=== PATIENT | female | born 1985 ===

== ENCOUNTER 2016-09-28 11:21 | Emergency (ER) | payer OTHER ==
[2016-09-28 13:04] VITALS: BP 124/74
[2016-09-28] MEDS ORDERED: Fluorescein Sodium TOPICAL* 1 MG TEST ONE (15:20)
[2016-09-28] MEDS ORDERED: BSS OPTH.SOL* BTL ONE (15:20)
[2016-09-28] MEDS ORDERED: Tetracaine 0.5% OPTH.SOL 15ML* BTL ONE (15:21)
--- NOTE | 2016-09-28 15:21 | UC ---
Eye Complaint HPI - HPI Summary HPI Summary: The patient comes in today for: 1. Burning in both eyes, the but left one is worse than the right, and redness of both eyes. Onset: Last night. Palliative/provocative: Not touching the eyes makes them better. Quality: Burning. Region: Both eyes. Severity: 5/10 Time: On and off. Present when blinking. Associated symptoms: Visual acuity: "OK." "Normal." Previous eye disease: Event: Last week, she fell asleep last week with contact in both eyes. She put in the contacts last night. She went out for dinner, and then when she got home, she couldn't take them out. She states that she did not drink any alcohol nor take any sleep medication. She states that she does not have any active sleep disorders. She states that her vision now is like what it is when she does not have her contacts in. She just wants to make sure that she does not have her contacts in at this time. She does not remember rubbing them out at night. * - History of Current Complaint Chief Complaint: UCEye Stated Complaint: EYE COMPLAINT CONTACT LENSE Time Seen by Provider: 09/28/16 15:10 Hx Obtained From: Patient Hx Last Menstrual Period: 4 WEEKS AGO ?: No - Allergies/Home Medications Allergies/Adverse Reactions: Allergies Allergy/AdvReac Type Severity Reaction Status Date / Time No Known Allergies Allergy Verified 09/28/16 12:53 Home Medications: Home Medications Phenylephrine-Aspirin [[place] Plus Sinus F 7.8-325 mg] 09/28/16 [History] PMH/Surg Hx/FS Hx/Imm Hx Previously Healthy: Yes Endocrine History Of: Denies: Diabetes, Thyroid Disease, Hyperthyroidism, Hypothyroidism, Dyslipidemia Cardiovascular History Of: Denies: Cardiac Disorders, Hypertension, Pacemaker/ICD, Myocardial Infarction , Congestive Heart Failure, Atrial Fibrillation, Deep Vein Thrombosis, Bleeding Disorders Respiratory History Of: Denies: COPD, Asthma, Bronchitis, Pneumonia, Pulmonary Embolism GI/ History Of: Denies: Gastroesophageal Reflux, Ulcer, Gastrointestinal Bleed, Gall Bladder Disease, Kidney Stones, Diverticulitis, Renal Disease, Urosepsis Neurological History Of: Denies: TIA, CVA, Dementia, Seizures, Migraine Psychological History Of: Denies: Anxiety, Depression, Bipolar Disorder, Schizophrenia, Post Traumatic Stress Disorder Cancer History Of: Denies: Lung Cancer, Colorectal Cancer, Breast Cancer, Prostate Cancer, Cervical Cancer Other History Of: Negative For: HIV, Hepatitis B, Hepatitis C, Anticoagulant Therapy - Surgical History Surgical History: Yes - Family History Known Family History: Positive: Hypertension Negative: Cardiac Disease, Diabetes - Social History Occupation: Student Lives: With Family Alcohol Use: Weekly Substance Use Type: None Smoking Status (MU): Never Smoked Tobacco Review of Systems Constitutional: Negative Skin: Negative Eyes: Eye Redness ENT: Sore Throat, Nasal Discharge - white and yellow with sinus pressure. Respiratory: Cough - [place] plus Cardiovascular: Negative Gastrointestinal: Negative Genitourinary: Negative All Other Systems Reviewed And Are Negative: Yes Physical Exam Triage Information Reviewed: Yes Appearance: Well-Appearing, No Pain Distress, Well-Nourished Vital Signs: Initial Vital Signs Temp 98.6 F 09/28/16 12:55 Pulse 58 09/28/16 12:55 Resp 16 09/28/16 12:55 BP 124/74 09/28/16 12:55 Pulse Ox 100 09/28/16 12:55 Vital Signs Reviewed: Yes Eyes: Positive: Conjunctiva Clear - On the right., Conjunctiva Inflamed - Minimal erythema on the left., Other: - No contacts in the upper or lower eye globe.. Negative: Discharge ENT: Positive: Hearing grossly normal. Negative: Pharyngeal erythema, Nasal congestion, Nasal drainage, TM bulging, TM dull, TM red, Tonsillar swelling, Tonsillar exudate Dental: Negative: Gross Decay/Caries @, Dental Fracture @ Neck: Positive: Supple, Nontender, No Lymphadenopathy. Negative: Nuchal Rigidity Respiratory: Positive: Lungs clear, No respiratory distress, No accessory muscle use. Negative: Crackles, Wheezing Cardiovascular: Positive: RRR, No Murmur Abdomen Description: Positive: No Organomegaly, Soft. Negative: Nontender - She has diffuse LLQ and RLQ tenderness with no rebound or percussion tenderness. , Distended, Guarding Musculoskeletal: Positive: Strength Intact, ROM Intact, No Edema Neurological: Positive: Alert, Muscle Tone Normal Psychological: Positive: Normal Response To Family, Age Appropriate Behavior, Consolable Skin: Negative: rashes, breakdown Eye Complaint Course/Dx - Course Course Of Treatment: Patient was told that I did not see any contact in her eyes. She was asked if she wanted treatment for a possible sinus infection ( she declined antibiotic treatment). She did not want her abdominal tenderness further investigated. - Differential Dx/Diagnosis Provider Diagnoses: Conjunctivitis, bilateral, non-suppurative. Discharge - Discharge Plan Condition: Stable Disposition: HOME Patient Education Materials: Conjunctivitis (ED) Referrals: No Primary Care Phys,NOPCP [Primary Care Provider] - If Needed (Please see your primary care provider as needed. If you don't have one, please contact the Physician Referral phone number. Until then, you can see us.) [facility] [Outside]
== END 2016-09-28 15:46 | disposition home or self-care (01) ==
LOC: UCEAST 11:21
DX: H10.9 Unspecified conjunctivitis (principal)
CPT/HCPCS: 99201; A9270-GY; G0463